=== PATIENT | female | born 1980 | race Caucasian/White ===

== ENCOUNTER 2024-08-08 22:01 | Emergency (ER) | payer MEDICAID ==
[~2024-08-08] VITALS: Ht 165.1 cm; Wt 68.0 kg
[2024-08-08 22:03] VITALS: BP 156/78; PULSE 76; RESP 18; TEMP 98.4; O2SAT 97
== END 2024-08-08 23:01 | disposition left against medical advice (07) ==
LOC: ER 22:01
DX: F41.9 Anxiety disorder, unspecified (principal); Z53.21 Procedure and treatment not carried out due to patient leaving prior to being seen by health care provider